=== PATIENT | male | born 1935 | race Two or more races ===

== ENCOUNTER 2024-11-07 14:34 | Inpatient (IN) | payer MEDICARE, OTHER ==
[~2024-11-07] VITALS: Ht 162.6 cm; Wt 54.4 kg
[2024-11-07 15:36] LABS: PLATELET COUNT (AUTO) 271 K/uL (150-450); RED BLOOD CELL COUNT(AUTO) 3.54 MIL/uL (4.5-6.0); RED CELL DISTRIBUTION WIDTH 14.3 % (11.5-15.0); WHITE BLOOD COUNT (AUTO) 8.0 K/uL (4.3-11.0)
[2024-11-07 15:47] LABS: CALCIUM, SERUM 8.3 mg/dL (8.5-10.1); CREATININE 1.0 mg/dL (0.6-1.3); SODIUM SERUM 139.0 mmol/L (136-145); UREA NITROGEN, BLOOD 28.0 mg/dL (7-18)
[2024-11-07 15:50] LABS: INR 1.03 (0.91-1.10)
[2024-11-07] MEDS ORDERED: ASPIRIN EC 81 MG TABLET.DR PO ONE (16:14)
[2024-11-07] MEDS: ASPIRIN EC 81 MG TABLET.DR PO ONE (16:17)
[2024-11-07] MEDS ORDERED: CEFTRIAXONE 1GM BAG (ER ONLY) 50 ML IV ONE (17:19)
[2024-11-07] MEDS: CEFTRIAXONE 1GM BAG (ER ONLY) 1 GM/50 ML PIGGYBACK IV ONE (17:20)
[2024-11-07] MEDS ORDERED: ASPI-1169 PO (17:50)
[2024-11-07] MEDS ORDERED: LOSA25TA27 PO (17:50)
[2024-11-07] MEDS ORDERED: GEMTESA PO (17:50)
[2024-11-07] MEDS ORDERED: FINA5TAB11 PO (17:50)
[2024-11-07] MEDS ORDERED: CARB-131 PO (17:50)
[2024-11-07] MEDS ORDERED: SILO8CAP2 PO (17:50)
[2024-11-07] MEDS: AZITHROMYCIN 500 MG in IV D5W 250 ML IV ONE (18:19)
[2024-11-07] MEDS ORDERED: MAG HYDROX/AL HYDROX/SIMETH 30 ML UDC PO PRN (18:30)
[2024-11-07] MEDS ORDERED: MAGNESIUM HYDROXIDE 30 ML UDC PO PRN (18:30)
[2024-11-07] MEDS ORDERED: ONDANSETRON HCL/PF 4 MG/2 ML VIAL IVP PRN (18:30)
[2024-11-07] MEDS ORDERED: TEMAZEPAM 15 MG CAPSULE PO PRN (18:30)
[2024-11-07] MEDS ORDERED: Z GUARD REMEDY 4 OZ OINT TP PRN (18:30)
[2024-11-07] MEDS ORDERED: ACETAMINOPHEN 325 MG TABLET PO PRN (18:30)
[2024-11-07] MEDS ORDERED: HYDROCODONE/APAP 5/325MG TABLET PO PRN (18:30)
[2024-11-07 18:50] VITALS: BP 148/119; TEMP 98.4; O2SAT 98
[2024-11-07 20:00] VITALS: BP 94/68; TEMP 97.5; O2SAT 97
[2024-11-07] MEDS: GEMTESA PO SCH (21:39)
[2024-11-07] MEDS: [UNRECOGNIZED DRUG - OTHER] PO SCH (21:39)
[2024-11-07] MEDS: CARBIDOPA LEVODOPA ENTA PO SCH (21:39)
[2024-11-07] MEDS: SILODOSIN PO SCH (21:39)
[2024-11-07] MEDS: ENOXAPARIN SODIUM 40 MG/0.4 ML DISP.SYRIN SQ SCH (21:43)
[2024-11-08 02:11] VITALS: BP 113/82; TEMP 98.1; O2SAT 97
[2024-11-08 04:00] VITALS: BP 106/56; TEMP 97.9; O2SAT 97
[2024-11-08 06:43] LABS: PLATELET COUNT (AUTO) 246 K/uL (150-450); RED BLOOD CELL COUNT(AUTO) 3.55 MIL/uL (4.5-6.0); RED CELL DISTRIBUTION WIDTH 14.4 % (11.5-15.0); WHITE BLOOD COUNT (AUTO) 5.6 K/uL (4.3-11.0)
[2024-11-08 06:56] LABS: CALCIUM, SERUM 8.3 mg/dL (8.5-10.1); CREATININE 0.7 mg/dL (0.6-1.3); PHOSPHORUS 2.9 mg/dL (2.5-4.9); SODIUM SERUM 140 mmol/L (136-145); UREA NITROGEN, BLOOD 18 mg/dL (7-18)
[2024-11-08 07:40] LABS: LDL 47 mg/dL (0-99)
[2024-11-08 08:00] VITALS: BP 144/70; TEMP 97.5; O2SAT 95
[2024-11-08] MEDS: PANTOPRAZOLE 40 MG TABLET.DR PO SCH (08:08)
[2024-11-08] MEDS: ASPIRIN 81 MG TAB.CHEW PO SCH (08:08)
[2024-11-08] MEDS: LOSARTAN POTASSIUM 25 MG TABLET PO SCH (08:08)
[2024-11-08] MEDS: FINASTERIDE (5 MG) 5 MG TABLET PO SCH (08:08)
[2024-11-08] MEDS ORDERED: ENTACAPONE 200 MG TABLET PO SCH (09:00)
[2024-11-08 12:00] VITALS: BP 143/74; TEMP 97.9; O2SAT 95
[2024-11-08] MEDS ORDERED: IPRATROPIUM NEB FS 0.5 MG/2.5 ML AMPUL.NEB NEB PRN (13:30)
[2024-11-08] MEDS ORDERED: ALBUTEROL HALF STRENGTH 1.25 MG/3 ML VIAL.NEB NEB PRN (13:30)
[2024-11-08 16:00] VITALS: BP 124/90; TEMP 97.9; O2SAT 96
[2024-11-08] MEDS ORDERED: CEFTRIAXONE 1 G in IV D5W 50 ML IV SCH (17:00)
[2024-11-08] MEDS: AZITHROMYCIN 500 MG in IV D5W 250 ML IV SCH (17:00)
[2024-11-08 20:00] VITALS: BP 95/46; TEMP 97.9; O2SAT 95
[2024-11-09] VITALS: BP 124/53; TEMP 97.8; O2SAT 96
[2024-11-09 04:00] VITALS: BP 121/51; TEMP 97.5; O2SAT 95
[2024-11-09 08:00] VITALS: BP 110/64; TEMP 97.3; O2SAT 97
[2024-11-09 09:09] LABS: IRON, SERUM 58 ug/dl (50-175)
== END 2024-11-09 14:45 | disposition home health service (06) | DRG 153 ==
LOC: ER 14:40 → TELE1 17:44 → MEDSG1 11-09 10:44
PROVIDERS: ADMIT Nurse Practitioner Acute Care; ATTEND Nurse Practitioner Acute Care
DX: J06.9 Acute upper respiratory infection, unspecified (principal); J40 Bronchitis, not specified as acute or chronic; N32.81 Overactive bladder; G20.A1 Parkinson's disease without dyskinesia, without mention of fluctuations; N40.1 Benign prostatic hyperplasia with lower urinary tract symptoms; R73.9 Hyperglycemia, unspecified; D64.9 Anemia, unspecified; Z20.822 Contact with and (suspected) exposure to COVID-19; I10 Essential (primary) hypertension
CPT/HCPCS: 36415; 71045-TC; 80048-TC; 80061-TC; 82728-TC; 83540-TC; 83735-TC; 83880; 84100-TC; 84443-TC; 84484-TC; 85025-TC; 85730-TC; 93307-TC; 97110-TC; 97116-TC; 97530-TC; G0378; J0456; J0696; J1650; J7060